=== PATIENT | female | born 1955 | race Hispanic/Latino ===

== ENCOUNTER 2016-06-10 09:53 | Day surgery (SDC) | payer OTHER ==
[2016-06-10 11:30] LABS: Blood Urea Nitrogen 12 mg/dL (7-17)
[2016-06-10] MEDS ORDERED: VALIUM PO ONE (13:00)
[2016-06-10] MEDS ORDERED: VERSED IV NR (13:00)
[2016-06-10 15:08] VITALS: BP 104/62
--- NOTE | 2016-06-11 08:36 | Magnetic Resonance Report ---
MR ABDOMEN WITH AND WITHOUT CONTRAST: HISTORY: Endometrial cancer, liver lesion in right hepatic lobe. TECHNIQUE: Multisequence, multiplanar MRI before and after IV gadolinium. COMPARISON: None at this facility. FINDINGS: The liver is normal size, contour and signal. The portal venous system and hepatic veins are patent. There is no evidence for parenchymal liver disease. There are 2 tiny cysts in the right hepatic lobe measuring less than 1 cm. There is no evidence for suspicious liver mass to suggest neoplasm or metastatic disease. The gallbladder has been surgically removed. No biliary filling defect or abnormal dilatation is demonstrated. The pancreas, spleen, kidneys and adrenal glands are unremarkable. The visualized bowel loops are normal caliber and wall thickness. Normal aorta and IVC. No evidence for adenopathy, ascites or inflammatory changes. Normal bone marrow signal in the visualized thoracolumbar spine. IMPRESSION: Unremarkable MR abdomen with and without contrast. No suspicious liver lesion is identified. There are 2 tiny cysts in the right hepatic lobe, as noted above.
== END 2016-06-10 15:20 | disposition home or self-care (01) ==
LOC: OPU 09:53
PROVIDERS: ATTEND Obstetrics & Gynecology Gynecologic Oncology
DX: K76.89 Other specified diseases of liver (principal); C54.1 Malignant neoplasm of endometrium; Z90.49 Acquired absence of other specified parts of digestive tract
CPT/HCPCS: 36415; 74183; 82565; 84520; 96374; A9577; J2250